=== PATIENT | female | born 1970 | race Two or more races ===

== ENCOUNTER 2021-06-08 22:58 | Inpatient (IN) | payer OTHER ==
[~2021-06-08] VITALS: Ht 157.5 cm; Wt 85.3 kg
[2021-06-08] MEDS ORDERED: SYNTHROID75 MCG (23:10)
[2021-06-08] MEDS ORDERED: HYZAAR 100-12.1 EACH (23:11)
== END 2021-06-14 16:00 | disposition home or self-care (01) | DRG 391 ==
LOC: ER 22:58 → MEDJ 06-09 15:06 → SURH 06-09 15:06 → MEDJ 06-09 17:15
PROVIDERS: ADMIT Colon & Rectal Surgery; ATTEND Colon & Rectal Surgery
PROC: BW21YZZ Computerized Tomography (CT Scan) of Abdomen and Pelvis using Other Contrast (ICD-10-PCS; principal; 2021-06-09)
PROC: 4A12X4Z Monitoring of Cardiac Electrical Activity, External Approach (ICD-10-PCS; 2021-06-09)
DX: K57.32 Diverticulitis of large intestine without perforation or abscess without bleeding (principal); U07.1 COVID-19; R10.32 Left lower quadrant pain; I10 Essential (primary) hypertension; E03.8 Other specified hypothyroidism; E66.8 Other obesity